=== PATIENT | male | born 2000 | race Caucasian/White ===

== ENCOUNTER 2020-03-27 13:36 | Emergency (ER) | payer OTHER, SELFPAY ==
--- NOTE | ~2020-03-27 | CT_ITS ---
EXAMINATION: CT abdomen pelvis w con DATE: 03/27/2020 15:10 INDICATION: Right lower quadrant pain TECHNIQUE: Computed tomography (CT) of the abdomen and pelvis was performed with 100 cc Omnipaque 350 intravenous contrast. The dose-length product was 176.07 mGy-cm. Automated exposure control and iter ative reconstruction technique were employed. COMPARISON: None. FINDINGS: Lung bases unremarkable. Heart size normal. No significant pleural or pericardial effusion. The liver, spleen, pancreas, adrenal glands and kidneys are unremarkable. Nonobstructive bowel gas p attern. Moderate colonic fecal loading. No free air or free fluid. The appendix is not positively vis ualized. There is no pericecal inflammatory change to suggest appendicitis. No abnormal pelvic hector s or fluid collections. Scattered small bone islands in the pelvis. No acute osseous abnormality. IMPRESSION: 1. No acute abdominal abnormality. Reviewed, dictated and finalized at location A.
[2020-03-27 13:40] VITALS: BP 137/89; PULSE 90; RESP 16; TEMP 36.6; O2SAT 100
[2020-03-27 14:19] LABS: Basophils Percent Auto 0.5 % (0.2-1.2); Eosinophils Absolute Auto 0.1 K/mm3 (0-0.3); Eosinophils Percent Auto 0.8 % (0-4.4); Hematocrit 44.4 % (42.0-52.0); Hemoglobin 15.6 g/dL (14.0-18.0); Immature Granulocyte Absolute 0.02 K/mm3 (0.00-0.031); Immature Granulocyte Percent A 0.3 % (0-0.5); Lymphocytes Absolute Auto 1.83 K/mm3 (0.9-3.2); Lymphocytes Percent Auto 23.6 % (18.3-44.2); Mean Corpuscular HGB Conc 35.1 g/dl (32-36); Mean Corpuscular Hemoglobin 29.9 pg (26-34); Mean Corpuscular Volume 85.1 fl (80-100); Mean Platelet Volume 10.9 fl (7.4-10.4); Monocytes Absolute Auto 0.6 K/mm3 (0.1-0.6); Monocytes Percent Auto 7.5 % (2.6-8.5); Neutrophils Absolute Auto 5.2 K/mm3 (1.3-6.7); Neutrophils Percent Auto 67.3 % (45.5-73.1); Platelet Count Result 221 k/mm3 (150-375); Red Blood Count 5.22 M/mm3 (4.6-6.20); Red Cell Distribution Width 12.2 % (11.5-14.5); White Blood Count 7.8 K/mm3 (4.5-10.0)
[2020-03-27 14:21] LABS: Add Urine Microscopic? NO; Appearance Urine Clear (Clear); Bilirubin Urine Negative (Negative); Blood Urine Negative (Negative); Color Urine Colorless (Yellow); Glucose Urine UA Negative (Negative); Ketones Urine Negative (Negative); Leukocyte Esterase Ur Negative LEU/UL (Negative); Nitrate Urine Negative (Negative); Protein Urine Negative (Negative); Urobilinogen Urine Negative mg/dL (<2.0)
[2020-03-27 14:23] LABS: Specific Grav Ur 1.004 (1.001-1.035)
[2020-03-27 14:29] LABS: Blood Urea Nitrogen 10 mg/dL (9-20); Calcium 9.6 mg/dL (8.4-10.2); Carbon Dioxide 24 mmol/L (22-30); Chloride 102 mmol/L (98-107); Estimated CRCL calculation 91 ml/min; Estimated Glomerular Filt Rate > 60; Glucose 109 mg/dL (75-110); Potassium 3.8 mmol/L (3.4-5.0); Sodium 137 mmol/L (137-145)
[2020-03-27] MEDS: KETOROLAC 30 MG/ML VIAL (*BKC) IV PUSH (14:36)
--- NOTE | 2020-03-27 15:50 | ED.GENADULT ---
HPI - General Adult General Chief complaint: Abdominal Pain Stated complaint: abdominal pain Time Seen by Provider: 03/27/20 13:41 History of Present Illness HPI narrative: Patient is a 20-year-old male who presents ER with lower abdominal pain that radiates to the right side. Ongoing over the last week. Seen in ER in [place] where an x-ray of his abdomen was performed as well as blood work without diagnosis. He was told it may be muscle strain. Reports he also took some MiraLAX in case he was constipated but did not seem to improve any of his symptoms. No fevers or chills or sweats. Noticed today that he began having urinary frequency and urgency. He does have history of kidney stones. He has been without any hematuria or dysuria. Related Data Allergies Allergy/AdvReac Type Severity Reaction Status Date / Time No Known Allergies Allergy Mild Verified 03/27/20 13:43 Review of Systems Review of Systems: All systems reviewed & are unremarkable except as noted in HPI and below Constitutional: Constitutional: Denies chills, Denies fever(s) and Denies weakness ENT: Denies nasal congestion and Denies sore throat Gastrointestinal: Gastrointestinal: Reports abdominal pain, Reports constipation, Denies diarrhea, Denies nausea and Denies vomiting Genitourinary: Genitourinary: Denies hematuria, Denies oliguria, Denies dysuria, Denies penile discharge and Reports urinary frequency PMFSH Past Medical History Medical History (Updated 03/27/20 @ 15:54 by Austen Leija MD) Kidney stones Surgical History Surgical History (Updated 03/27/20 @ 15:52 by Austen Leija MD) No pertinent past surgical history Social History Social History (Updated 03/27/20 @ 15:52 by Austen Leija MD) Smoking status: Never smoker Gender identity (if verbalized by the patient): Male Exam Narrative: Exam Narrative: GENERAL: Well-appearing, well-nourished, and in no acute distress. HEAD: Normocephalic, atraumatic. ENT: Mucous membranes moist. CHEST: Clear to auscultation. No respiratory distress. HEART: Regular rate and rhythm. Normal peripheral pulses. ABDOMEN: Soft, suprapubic and right lower quadrant discomfort without rebound or guarding, nondistended, normal active bowel sounds. EXTREMITIES: Normal range of motion. No edema. SKIN: Warm, dry, no rash. NEURO: Alert and oriented x3. Course Course Emergency Course: Unremarkable evaluation. Upon review of patient's films looks like he has significant amount of stool within the rectal region. Recommend continued MiraLAX reviewed magnesium citrate at home to move along the source of his issue. Vital Signs Vital signs: Vital Signs Temperature 97.9 F 03/27/20 13:40 Pulse Rate 90 03/27/20 13:40 Respiratory Rate 16 03/27/20 13:40 Blood Pressure 137/89 03/27/20 13:40 Pulse Oximetry 100 03/27/20 13:40 Temperature 97.9 F 03/27/20 13:40 Pulse Rate 90 03/27/20 13:40 Respiratory Rate 16 03/27/20 13:40 Blood Pressure 137/89 03/27/20 13:40 Pulse Oximetry 100 03/27/20 13:40 Medical Decision Making Vital Signs Vital Signs: Vital Signs Temperature 97.9 F 03/27/20 13:40 Pulse Rate 90 03/27/20 13:40 Respiratory Rate 16 03/27/20 13:40 Blood Pressure 137/89 03/27/20 13:40 Pulse Oximetry 100 03/27/20 13:40 Temperature 97.9 F 03/27/20 13:40 Pulse Rate 90 03/27/20 13:40 Respiratory Rate 16 03/27/20 13:40 Blood Pressure 137/89 03/27/20 13:40 Pulse Oximetry 100 03/27/20 13:40 Lab Data Result diagrams: 03/27/20 14:06 03/27/20 14:06 Labs: Lab Results 03/27/20 03/27/20 03/27/20 Range/Units 14:06 14:06 14:08 WBC 7.8 (4.5-10.0) K/mm3 RBC 5.22 (4.6-6.20) M/mm3 Hgb 15.6 (14.0-18.0) g/dL Hct 44.4 (42.0-52.0) % MCV 85.1 (80-100) fl MCH 29.9 (26-34) pg MCHC 35.1 (32-36) g/dl RDW 12.2 (11.5-14.5) % Plt Count 221 (150-375) k/mm3 MP
[2020-03-27 16:42] VITALS: BP 128/65; PULSE 82; RESP 15; O2SAT 99
== END 2020-03-27 16:44 | disposition home or self-care (01) ==
PROVIDERS: Emergency Provider Emergency Medicine; PCP Family Medicine
DX: K59.00 Constipation, unspecified (principal); Z87.442 Personal history of urinary calculi
CPT/HCPCS: 36415; 74177; 80048; 81003; 85025; 96374; 99284; J1885; Q9967